=== PATIENT | female | born 1975 | race Caucasian/White ===

== ENCOUNTER 2021-03-15 15:47 | Outpatient (REF) | payer MEDICAID, SELFPAY ==
--- NOTE | ~2021-03-15 | MM_ITS ---
EXAMINATION: MM SCREENING DIGITAL BREAST TOMOSYNTHESIS, BILATERAL CLINICAL INFORMATION: Screening. Asymptomatic. The lifetime risk of breast cancer based on the Tyrer-Cuzick Model is 7%. COMPARISON: Mammography: 05/12/2018 (baseline). TECHNIQUE: Digital breast tomosynthesis is performed in both the craniocaudal and mediolateral oblique views along with computer-aided detection (CAD). Synthesized 2D images are generated from the tomosynthesis. FINDINGS: There are scattered areas of fibroglandular density (ACR BI-RADS breast composition Category b). There are no significant masses, abnormal calcifications, or other abnormalities. There is small intramammary node posterior outer left breast and a stable small circumscribed nodule mid 9:00 left breast similar to baseline exam. The axilla and skin contours are unremarkable. MM/MM tomosynthesis screening BI IMPRESSION: No mammographic evidence of malignancy. ASSESSMENT: BI-RADS 2: Benign RECOMMENDATION: Routine annual mammography screening. This patient's information was entered into a reminder system with a target due date for their next mammogram.
== END 2021-03-15 15:48 | disposition home or self-care (01) ==
LOC: HO.MAMMO 15:47
PROVIDERS: PCP Student in an Organized Health Care Education/Training Program; Visit Provider Student in an Organized Health Care Education/Training Program
DX: Z12.31 Encounter for screening mammogram for malignant neoplasm of breast (principal)
CPT/HCPCS: 77063; 77067

== ENCOUNTER 2021-05-12 15:12 | Outpatient (REF) | payer MEDICAID, SELFPAY ==
--- NOTE | ~2021-05-12 | XR_ITS ---
EXAMINATION: XR FOOT, RIGHT CLINICAL INFORMATION: Pain in right foot. COMPARISON: None TECHNIQUE: AP, lateral, and oblique views of the right foot. FINDINGS: There is minimal spurring on the plantar aspect of the calcaneus. The bones and soft tissues are otherwise normal. No fracture. Alignment is anatomic. Joint spaces are maintained. XR/XR foot RT min 3V IMPRESSION: Unremarkable examination.
== END 2021-05-12 15:13 | disposition home or self-care (01) ==
LOC: HO.XRAY 15:12
PROVIDERS: PCP Student in an Organized Health Care Education/Training Program; Visit Provider Student in an Organized Health Care Education/Training Program
DX: M79.671 Pain in right foot (principal)
CPT/HCPCS: 73630

== ENCOUNTER 2023-04-12 16:18 | Outpatient (REF) | payer MEDICAID, SELFPAY | END 2023-04-12 16:19 | disposition home or self-care (01) | LOC: HO.CHCLNP 16:18 | PROVIDERS: Visit Provider Internal Medicine | DX: R35.0 Frequency of micturition (principal); N30.01 Acute cystitis with hematuria | CPT/HCPCS: 87086; 87088; 87186 ==

== ENCOUNTER 2024-09-10 13:39 | Outpatient (REF) | payer MEDICAID, SELFPAY ==
--- OUTSIDE RECORDS SUMMARY | 2024-09-10 17:32 | XMS_ITS | Encounter Summary ---
Author Organization [employer] Address [address] [place] [address] Care Team Providers Care Problem Manager Name Role Phone Itzel Schmid MD Primary Care Provider [phone] Reason for Visit * Reason Onset Date Comments Med Refill 09/16/2023 Encounter Details Date Type Department Care Team ([facility] st Contact Info) Description 09/16/2023 Telephone [facility] MED & PEDS [address] [place] [address] Itzel Schmid MD [address] [place] [address] Med Refill Social History Tobacco Use Types Packs/Day Years Used Date Smoking Tobacco: Never Smokeless Tobacco: Never Alcohol Use Standard Drinks/Week Comments Never 0 (1 standard drink = 0.6 oz pur e alcohol) Depression Answer Date Recorded Patient Health Questionnaire-9 Score 0 06/19/2023 Patient Health Questionnaire-9 Score 0 06/19/2023 Last PHQ-9: Questionnaire Data Not on file 1 08/19/2022 Housing Stability Answer Date Recorded What is your housing situation today? I have maritza reilly 06/19/[address] you li ve. Do you have problems with any of the following? None of the above 06/19/2023 Food Insecurity Answer Date Recorded Within the past 12 months, y ou worried that your food would run out before you got money to buy more: Never True 06/19/2023 Within the past 12 months,th e food you bought just didn't last and you didn't have enough money to get more: Never True 03/2023 Transportation Answer Date Recorded In the past 12 months, has l ack of transportation kept you from medical appts, meetings, work or from getting things needed for daily living? No 06/19/2023 Utilities Answer Date Recorded In the past 12 months, has t he electric, gas, oil or water company threatened to shut off services in your home? No 06/19/2023 Depression Answer Date Recorded Patient Health Questionnaire-2 Score 0 06/19/2023 Comments Unknown Sex and Gender Information Value Date Recorded Sex Assigned at Female 06/11/2022 10:18 AM EDT Legal Sex Female 10:18 AM EDT Gender Identity Female 06/11/2022 10:18 AM EDT Sexual Orientation Straight 06/11/2022 10 :18 AM EDT documented as of this encounter Miscellaneous Notes * Telephone Encounter - Sarika Monet RN - 09/16/2023 4:43 PM EST Triage call Pt reports low back pain mainly right sided. Pt reports, I have been doing alot of cooking lately I may have twisted my back . Pt has had a hx of back pain and previously was prescribed cyclobenzaprine 10 mg which was effective for back spasms. Pt is requesting this medication be refilled but, the medication is not on chart/meds. Pt reports back pain is mainly right sided, radiates down right leg and is aching feeling which is sharp at times. Neg for numbness. Pt is able to go about normal activities and walking is not changed. Advised to come to [facility] 09/17 @ 320pm. Insurance is verified as active prior to booking. Protocol Used: Back Pain (Adult) Protocol-Based Disposition: See in Office or Video Visit within 3 Days Video visit not offered Positive Triage Questions: * Pain radiates into the thigh or further down the leg * Patient wants to be seen * All higher-acuity triage questions were negative Care Advice Discussed: * Reassurance and Education - Back Pain * Cold or Heat * Sleep * Activity * Pain Medicines * Pain Medicines - Extra Notes and Warnings * Reasons To Call Back - Fever occurs - Numbness or weakness occurs, or bowel/bladder problems - Pain begins to shoot into the leg - Pain persists over 2 weeks - Pain becomes worse - You become worse * Telephone Encounter - Antonio Oconnellnay Mcintoshrero - 09/16/2023 4:16 PM EST TC from pt requesting medication refill. Medications needing refill : Cyclobenzaprine 10 mg tablet To be sent to: [facility]/pharmacy #[id number] - [place] - [address] Medication Currently Inactive documented in this encounter Plan of Treatment Upcoming Encounters Date Type Department Care Team (Late st Contact Info) Description 09/18/2024 10:45 AM EST Office Visit [facility] MED & PEDS [address] [place] [address] Itzel Schmid MD [address] [place] [address] documented as of this encounter Visit Diagnoses Not on filedocumented in this encounter Additional Health Concerns Assessment Noted Time PHQ-9 Depression Total Score: 0 06/19/20 23 11:34 AM EST documented as of this encounter Care Teams Problem Manager Relationship Specialty Start Date End Date Itzel Schmid MD [address] [place] [address] PCP - General Family Medicine 05/12/14 documented as of this encounter
--- OUTSIDE RECORDS SUMMARY | 2024-09-10 17:32 | XMS_ITS | Encounter Summary ---
Author Organization [employer] Address [address] [facility] [address] [place] [address] Care Team Providers Care Application Support Manager Name Role Phone Itzel Schmid MD Primary Care Provider [phone] Reason for Visit * Reason Onset Date Comments Appointment Request 12/06/2022 Encounter Details Date Type Department Care Team (Late Contact Info) Description 12/06/2022 Telephone [facility] CH[facility] MED & PEDS [address] [place] [address] Itzel Schmid MD [address] [place] [address] Appointment Request Social History Tobacco Use Types Packs/Day Years Used Date Smoking Tobacco: Never Assessed Comments Unknown Sex and Gender Information Value Date Recorded Sex Assigned at Female 06/11/2022 10:18 AM EDT Legal Sex Female 10:18 AM EDT Gender Identity Female 06/11/2022 10:18 AM EDT Sexual Orientation Straight 06/11/2022 10 :18 AM EDT documented as of this encounter Miscellaneous Notes * Telephone Encounter - Antonio Ortiz - 12/06/2022 1:55 PM EDT Tc from pt requesting a Follow up appt with provider to discuss some concerns and issues pt is having. Please contact pt at [phone] documented in this encounter Plan of Treatment Upcoming Encounters Date Type Department Care Team (Late Contact Info) Description 09/18/2024 10:45 AM EST Office Visit [facility] MED & PEDS [address] [place] [address] Itzel Schmid MD [address] [place] [address] documented as of this encounter Visit Diagnoses Not on filedocumented in this encounter Care Teams Application Support Manager Relationship Specialty Start Date End Date Itzel Schmid MD [address] [place] [address] PCP - General Family Medicine 05/12/14 documented as of this encounter
--- OUTSIDE RECORDS SUMMARY | 2024-09-10 17:32 | XMS_ITS | Clinical Summary ---
Author Organization [employer] Address [address] [facility] [address] [place] [address] Care Team Providers Care Metallographic Technician Name Role Phone Itzel Schmid MD Primary Care Provider [phone] Allergies No known active allergies Medications albuterol (2.5 MG/3ML) 0.083% nebulizer solution inhale 3 milliliter by nebulization route every 4 - 6 hours 2 Active ibuprofen 800 MG tablet take 1 Tablet by Oral route 3 times every day as needed 90 tablet 3 3 Active albuterol (ProAir HFA) 108 (90 Base) MCG/ACT inhaler Inhale 2 puff using inhaler four times a day as needed 18 g 11 3 Active cetirizine (ZyrTEC) 10 MG tabletIndicatio ns:Allergy, sequela TAKE 1 TABLET BY MOUTH EVERY DAY IN THE MORNING 90 tablet 3 4 Active cholecalciferol (D3-1000) 25 MCG (1000 UT) tabletIndicatio ns:Vitamin D deficiency Take 1 tablet (25 mcg) by mouth in the morning. 90 tablet 2 4 Active naproxen (Naprosyn) 500 MG tablet TAKE 1 TABLET BY MOUTH TWICE A DAY 60 tablet 4 Active Diclofenac Sodium 1 % gel APPLY 2 GRAMS TO AFFECTED AREA TWICE A DAY 100 g 3 4 Active betamethasone valerate (Valisone) 0.1 % ointment Apply topically if needed in the morning and at bedtime (dryness). 45 g 2 4 Active Active Problems Problem Noted Date Diagnosed Date Paraspinal muscle spasm 09/17/2023 Assessment & Plan (09/17/2023 3:37 PM EST): Patient that presented visit with complaints of paraspinal muscle spasm will be prescribed medications to treat concern. Advised to notify office if medication doesn't improve symptoms. Recommended physical therapy: patient accepted. Therefore, patient will be provided with a referral to Physical Therapy. Will schedule appointment with PCP. Allergic rhinitis 08/15/2011 Asthma 08/15/2011 Vitamin D deficiency 07/18/2010 Encounters Date Type Department Care Team Description 07/27/2024 Telephone [facility] MED & PEDS [address] [place] [address] Itzel Schmid MD Lab Orders from Last 3 Months Social History Tobacco Use Types Packs/Day Years Used Date Smoking Tobacco: Never Smokeless Tobacco: Never Tobacco Cessation:Counseling Given: Not Answered Alcohol Use Standard Drinks/Week Comments Never 0 [...] Orientation Straight 06/11/2022 10 :18 AM EDT Last Filed Vital Signs Vital Sign Reading Time Taken Comments Blood Pressure 132/90 10/16/2023 11:04 AM EST Pulse 108 10/16/2023 11:04 AM EST Temperature 36.7 ??C (98 ??F) 10/16/2023 11:04 AM EST Respiratory Rate 20 10/16/2023 11:04 AM EST Oxygen Saturation 96% 10/16/2023 11:04 AM EST Inhaled Oxygen Concentration - - Weight 77.1 kg (170 lb) 10/16/2023 11:04 AM EST Height 160 cm (5' 3 ) 10/16/2023 11:04 AM EST Body Mass Index 30.11 10/16/2023 11:04 AM EST Plan of Treatment Upcoming Encounters Date Type Department Care Team (Late st Contact Info) Description 09/18/2024 10:45 AM EST Office Visit [facility] MED & PEDS [address] [place] [address] Itzel Schmid MD [address] [place] [address] Health Maintenance Due Date Last Done Comments CT Colonography 1976 Colonoscopy 1976 Colorectal Cancer Screening 1976 FIT DNA/Cologuard 1976 FIT 1976 FOBT 1976 HIV Screening 1976 Sigmoidoscopy 1976 Alcohol/Substance Use Screening 1988 Family Planning (PISQ) 1991 Hepatitis C Screening 1994 Hepatitis B Vaccines (1 of 3 - 19+ 3-dose series) 1995 Pneumococcal Vaccine: Pediatrics (0 to 5 Years) and At-Risk Patients (6 to 49) Years) (1 of 2 - PCV) 1995 IPV Vaccines (2 of 3 - Adult catch-up series) 03/10/2019 02/10/2019 Mammogram 03/15/2023 03/15/2021, 05/14/2018 COVID-19 Vaccine ( season) 2024 02/23/2021, 02/02/2021 Influenza Vaccine (#1) 2024 3, 06/30/2022, 07/21/2021, Additional history exists Depression Screening 06/19/2024 06/19/2023, 06/19/20 23 SDOH Screening 06/19/2024 06/19/2023 Tobacco Screening 10/15/2024 10/16/2023 Cervical Cancer Screening 09/27/2025 HPV/Cotest 09/27/2025 09/27/2020 Pap Smear 09/27/2025 09/27/2020 Zoster Vaccines (1 of 2) 2026 DTaP/Tdap/Td Vaccines (2 - Td or Tdap) 03/26/2028 03/26/2018 RSV Patients and Patients Aged 60 years or older (1 - 1-dose 75+ series) 2051 Hepatitis A Vaccines Aged Out 08/26/2020, 02/05/20 19 No longer eligible based on patient's age to complete this topic HIB Vaccines Aged Out No longer eligi ble based on patient's age to complete this topic HPV Vaccines Aged Out No longer eligi ble based on patient's age to complete this topic Meningococcal Vaccine Aged Out No zachary eduardo eligible based on patient's age to complete this topic RSV under 20 months Aged Out No longe r eligible based on patient's age to complete this topic Rotavirus Vaccines Aged Out No longer eligible based on patient's age to complete this topic Procedures Procedure Name Priority Date/Time Associated Diagnosis Comments MAMMOGRAM GENERIC Routine 03/15/2021 3:4 5 PM EDT HPV MRNA E6/E7 Routine 09/27/2020 2:14 PM EST THINPREP PAP Routine 09/27/2020 2:14 PM EST from Last 3 Months or Most Recently Relevant to Health Maintenance Results * Mammography Report 1 (03/15/2021 3:45 PM EDT) Anatomical Region Laterality Modality Breast Bilateral Mammography 03/15/2021 3:45 PM EDT Narrative 03/17/2021 8:02 AM EDT Refer to the Notes tab for result details [facility] Procedure: Mammography Report 1 Procedure Note Provider, Tori, - 11/04/2022 Refer to the Notes tab for result details [facility] Procedure: Mammography Report 1 Itzel Schmid MD IMG BI PROCEDURES Final Result * THINPREP PAP (09/27/2020 2:14 PM EST) Clinical Information: None given [facility] COMMENT SEE COMMENT [facility] Comment: EXPLANATORY NOTE: ? The Pap is a screening test for cervical cancer. It is ?? not a diagnostic test and is subject to false negative ?? and false positive results. It is most reliable when a ?? satisfactory sample, regularly obtained, is submitted ?? with relevant clinical findings and history, and when ?? the Pap result is evaluated along with historic and ?? current clinical information. ?? Animal Husbandry Worker : SEE COMMENT [facility] Comment: CXP, CT(ASCP) CT screening location: [address] ??[address] Interpretation/R esult: Negative for intraepithelial lesion or malignancy. [facility] LMP: NONE [facility]IV[facility] Prev. BX: NONE [facility]IV[facility] Prev. PAP: NONE [facility]IVEN [facility] SOURCE: None given [facility] Statement Of Adequacy: SEE COMMENT [facility] Comment: Satisfactory for evaluation. Endocervical/transformation zone component present. Age and/or menstrual status not provided 09/27/2020 2:14 PM EST us Tonya RUGGI[facility] LAB PATHOLOGY ORDERABLES Final Result [facility] [address] * HPV mRNA E6/E7 (09/27/2020 2:14 PM EST) HPV nRNA E6/E7 Not Detected Not Detected [facility] Comment: Methodology: Pile Fabric Knitter-Mediated Amplification This assay detects E6/E7 viral messenger RNA (mRNA) from 14 high-risk HPV types (16,18,31,33,35,39,45,51,52,56,58,59,66,68). ? The analytical performance characteristics of this assay have been determined by [employer]. The modifications have not been cleared or approved by the FDA. This assay has been validated pursuant to the CLIA regulations and is used for clinical purposes. ?? For additional information, please refer to http://education.britebill/MPG016b3 (This link if provided for information/ educational purposes only.) 09/27/2020 2:14 PM EST Tonya RUGGI[facility] LAB BLOOD ORDERABLES Melissa brock Result Performing Organization Address City/State/[facility] Co de Phone Number [facility] [address] from Last 3 Months or Most Recently Relevant to Health Maintenance Insurance [employer] Care Teams Metallographic Technician Relationship Specialty Start Date End Date Itzel Schmid MD [address] [place] [address] PCP - General Family Medicine 05/12/14
--- OUTSIDE RECORDS SUMMARY | 2024-09-10 17:32 | XMS_ITS | Encounter Summary ---
Author Organization [employer] Address [address] [place] [id number] Care Team Providers Care Cut Lace Machine Operator Name Role Phone Itzel Schmid MD Primary Care Provider [phone] Encounter Details Date Type Department Care Team ([facility] Contact Info) Description 04/16/2023 Orders Only [facility] MED & PEDS [address] [place] [address] Sally Singh MD [address] [place] [address] Social History Tobacco Use Types Packs/Day Years Used Date Smoking Tobacco: Never Smokeless Tobacco: Never Comments Unknown Sex and Gender Information Value Date Recorded Sex Assigned at Female 06/11/2022 10:18 AM EDT Legal Sex Female 10:18 AM EDT Gender Identity Female 06/11/2022 10:18 AM EDT Sexual Orientation Straight 06/11/2022 10 :18 AM EDT documented as of this encounter Plan of Treatment Upcoming Encounters Date Type Department Care Team ([facility] Contact Info) Description 09/18/2024 10:45 AM EST Office Visit [facility] MED & PEDS [address] [place], [place] [phone] Itzel Schmid MD [address] [place], [place] [phone] documented as of this encounter Visit Diagnoses Not on filedocumented in this encounter Care Teams Cut Lace Machine Operator Relationship Specialty Start Date End Date tIzel Schmid MD [address] [place] [address] PCP - General Family Medicine 05/12/14 documented as of this encounter
[2024-09-10 18:46] LABS: Alanine Aminotransferase 12 U/L (0-31); Albumin Level 3.7 g/dL (3.5-5.0); Anion Gap 11 (12-20); Aspartate Amino Transferase 24 U/L (5-31); Bilirubin Direct 0.2 mg/dL (0.0-0.5); Bilirubin Total 0.4 mg/dL (0.0-1.0); Blood Urea Nitrogen 15 mg/dL (9-16); Calcium 8.8 mg/dL (8.4-10.2); Carbon Dioxide 26 mmol/L (22-29); Chloride 105 mmol/L (96-108); Cholesterol 183 mg/dL (<200); Estimated Glomerular Filt Rate > 60; Glucose Random 95 mg/dL (60-115); HDL Cholesterol 49 mg/dL (>40); LDL Cholesterol Calculated 100 mg/dL (<100); Potassium 3.8 mmol/L (3.3-5.1); Sodium 138 mmol/L (135-145); Total Protein 7.5 g/dL (6.5-8.0); Triglycerides 170 mg/dL (<150)
[2024-09-10 18:54] LABS: Alkaline Phosphatase 67 U/L (39-117); Vitamin D 25-OH Total 50.4 ng/mL (>30)
== END 2024-09-10 13:40 | disposition home or self-care (01) ==
LOC: HO.CHCLDS 13:39
PROVIDERS: Visit Provider Student in an Organized Health Care Education/Training Program
DX: J45.40 Moderate persistent asthma, uncomplicated (principal); E55.9 Vitamin D deficiency, unspecified
CPT/HCPCS: 36415; 80048; 80061; 80076; 82306

== ENCOUNTER 2025-07-06 10:42 | Outpatient (REF) | payer MEDICAID, SELFPAY ==
--- OUTSIDE RECORDS SUMMARY | 2025-07-06 10:00 | XMS_ITS | Encounter Summary ---
Author Organization [employer] Address [address] [place] [address] 7 [place] [address] Care Team Providers Care Retail Salesworker Name Role Phone Gloria Osman CNP Primary Care Provider [phone] Reason for Referral * Imaging (Routine) - Closed Specialty Diagnoses / Procedures Referred By Michael corcoran Referred To Contact Radiology Diagnoses Encounter for screening mammogram for breast cancer Procedures BI Mammogram Screening Tomosynthesis Bilateral Gloria Osman CNP [address] [place] [address] Phone: tel: fax: [address] [address] Phone: tel: fax: Referral ID Status Reason Start Date Expiration Date Visits Re quested Visits Authorized [id number] Closed 07/06/2025 07/06/2026 1 1 Encounter Details Date Type Department Care Team (Late st Contact Info) Description 07/06/2025 10:00 AM EST Office Visit [facility] [address] [place] [address] Gloria Osman CNP [address] [place], [place] [id number] Encounter to establish care with new provider (Primary Dx); Colon cancer screening; Encounter for screening mammogram for breast cancer; Allergy, sequela; Chronic left-sided low back pain without sciatica; Screening for colon cancer; Encounter for immunization; Hyperglycemia Social History Tobacco Use Types Packs/Day Years Used Date Smoking Tobacco: Never Smokeless Tobacco: Never Alcohol Use Standard Drinks/Week Comments Never 0 (1 standard drink = 0.6 oz pur e alcohol) Depression Answer Date Recorded Patient Health Questionnaire-9 Score 0 07/06/2025 Patient Health Questionnaire-9 Score 0 07/06/2025 Last PHQ-9: Questionnaire Data Not on file 1 09/05/2024 Housing Stability Answer Date Recorded What is your housing situation today? I have maritza reilly 09/18/[address] you li ve. Do you have problems with any of the following? None of the above 09/18/2024 Food Insecurity Answer Date Recorded Within the past 12 months, y ou worried that your food would run out before you got money to buy more: Never True 09/18/2024 Within the past 12 months,th e food you bought just didn't last and you didn't have enough money to get more: Never True 02/2025 Transportation Answer Date Recorded In the past 12 months, has l ack of transportation kept you from medical appts, meetings, work or from getting things needed for daily living? No 09/18/2024 Utilities Answer Date Recorded In the past 12 months, has t he electric, gas, oil or water company threatened to shut off services in your home? No 09/18/2024 Depression Answer Date Recorded Patient Health Questionnaire-2 Score 0 07/06/2025 Internet Access Answer Date Recorded Internet Access Q1 Yes 06/29/2025 Internet Access Q2 Not on file 06/29/2025 Comments No Sex and Gender Information Value Date Recorded Sex Assigned at Female 06/11/2022 10:18 AM EDT Legal Sex Female 10:18 AM EDT Gender Identity Female 06/11/2022 10:18 AM EDT Sexual Orientation Straight 06/11/2022 10 :18 AM EDT documented as of this encounter Last Filed Vital Signs Vital Sign Reading Time Taken Comments Blood Pressure 132/84 07/06/2025 10:45 AM EST Pulse 100 07/06/2025 10:15 AM EST Temperature 36.3 C (97.4 F) 07/06/2025 10:15 AM EST Respiratory Rate 14 07/06/2025 10:15 AM EST Oxygen Saturation 98% 07/06/2025 10:15 AM EST Inhaled Oxygen Concentration - - Weight 76.2 kg (168 lb) 07/06/2025 10:15 AM EST Height 160 cm (5' 3 ) 07/06/2025 10:15 AM EST Body Mass Index 29.76 07/06/2025 10:15 AM EST documented in this encounter Functional Status * Over the past 2 weeks, how often have you been bothered by any of the following problems? Question Answer Date of Assessment Author Patient Health Questionnaire -2 Score 0 07/06/2025 11:09 AM Sa lexi Stein MA * Little interest or pleasure in doing things Answer Date of Assessment Author Not at all 07/06/2025 11:09 AM Alanna Daniel MA * Feeling down, depressed, or hopeless Answer Date of Assessment Author Not at all 07/06/2025 11:09 AM Alanna Daniel MA * Trouble falling or staying asleep, or sleeping too much Answer Date of Assessment Author Not at all 07/06/2025 11:09 AM Alanna Daniel MA * Feeling tired or having little energy Answer Date of Assessment Author Not at all 07/06/2025 11:09 AM Alanna Daniel MA * Poor appetite or overeating Answer Date of Assessment Author Not at all 07/06/2025 11:09 AM Alanna Daniel MA * Feeling bad about yourself - or that you are a failure or have let yourself or your family down Answer Date of Assessment Author Not at all 07/06/2025 11:09 AM Alanna Daniel MA * Trouble concentrating on things, such as reading the newspaper or watching television Answer Date of Assessment Author Not at all 07/06/2025 11:09 AM Alanna Daniel MA * Moving or speaking so slowly that other people could have noticed? Or the opposite - being so fidgety or restless that you have been moving around a lot more than usual. Answer Date of Assessment Author Not at all 07/06/2025 11:09 AM Alanna Daniel MA * Thoughts that you would be better off or hurting yourself in some way Answer Date of Assessment Author Not at all 07/06/2025 11:09 AM Alanna Daniel MA * Patient Health Questionnaire-9 Score Answer Date of Assessment Author 0 07/06/2025 11:09 AM Alanna Daniel MA * Over the last 2 weeks, how often have you been bothered by any of the following problems? Question Answer Date of Assessment Author Feeling nervous, anxious, or on edge 0 07/06/2025 11:08 AM Sa lexi Stein MA Not being able to stop or control worrying 0 07/06/2025 11:08 AM Sa lexi Stein MA Worrying too much about different things 0 07/06/2025 11:08 AM Sa lexi Stein MA Trouble relaxing 0 07/06/2025 11:08 AM Alanna Stein MA Being so restless that it is hard to sit still 0 07/06/2025 11:08 AM Sa lexi Stein MA Becoming easily annoyed or irritable 0 07/06/2025 11:08 AM Sa lexi Stein MA Feeling afraid as if somethi ng awful might happen 0 07/06/2025 11:08 AM Sa lexi Stein MA DEANNA-7 Total Score 0 07/06/2025 11:08 AM Alanna Stein MA documented as of this encounter Progress Notes * Gloria Osman CNP - 07/06/2025 10:00 AM EST Subjective: Hyacinth Zepeda is a 50 y.o. 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 Previous PCP Itzel Schmid MD. Interim history: Recent labs completed 08/2024- stable, besides mildly elevated cholesterol. RADHA with prior PCP was 09/2024 for PE which was normal Current concerns: In the morning reporting normal blood glucose in 60s-70s and then reports episode of hyperglycemia shooting to 130s-140s around 10am each day despite still fasting. Reports last meal usually before 8PM nightly. No history of DM. Chronic low back pain with radiation to LLE and some numbness of LLE. Denies new onset urinary or bowel incontinence. She does do daily exercises and stretching. Denies lower extremity weakness. Problem List[1] Surgical History[2] Family History[3] Mental health: Patient Health Questionnaire-9 Score: 0 (07/06/2025 11:09 AM) Patient Health Questionnaire-2 Score: 0 (07/06/2025 11:09 AM) Thoughts that you would be better off or hurting yourself in some way: Not at all (07/06/2025 11:09 AM) DEANNA-7 Total Score: 0 (07/06/2025 11:08 AM) Patient's last menstrual period was 06/08/2025. Allergies[4] Review of Systems Vitals: 07/06/25 1015 07/06/25 1045 BP: (!) 142/84 132/84 BP Location: Left arm Patient Position: Sitting BP Cuff Size: Large adult Pulse: 100 Resp: 14 Temp: 97.4 ??F (36.3 ??C) TempSrc: Oral SpO2: 98% Weight: 168 lb (76.2 kg) Height: 5' 3 (1.6 m) Physical Exam Constitutional: Appearance: Normal appearance. She is normal weight. Cardiovascular: Rate and Rhythm: Normal rate and regular rhythm. Pulses: Normal pulses. Heart sounds: Normal heart sounds. No murmur heard. No friction rub. No gallop. Pulmonary: Effort: Pulmonary effort is normal. No respiratory distress. Breath sounds: Normal breath sounds. No wheezing or rales. Neurological: General: No focal deficit present. Mental Status: She is alert and oriented to person, place, and time. Psychiatric: Mood and Affect: Mood normal. Behavior: Behavior normal. Thought Content: Thought content normal. Judgment: Judgment normal. Assessment & Plan Encounter to establish care with new provider Pt due for updated labs, ordered today Pt referred for breat and colon cancer screening, pap is up to date, not due until 09/2025 Discussed active meds and needs for refills as appropriate. Orders: Lipid Panel, Standard; Future Comprehensive Metabolic Panel; Future CBC auto differential; Future Hemoglobin A1c; Future Colon cancer screening Orders: Cologuard?? colon cancer screening Encounter for screening mammogram for breast cancer Orders: BI Mammogram Screening Tomosynthesis Bilateral; Future Allergy, sequela Refilled per pt request Orders: cetirizine (ZyrTEC) 10 MG tablet; Take 1 tablet (10 mg) by mouth in the morning. 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 Neg SLR bilaterally. Refilled diclofenac and prescribed flexeril to be taken prn for muscle spasms. Encouraged ongoing stretching and exercise Advised PT, declines as pt doing home stretches Orders: Diclofenac Sodium 1 % gel; APPLY 2 GRAMS TO AFFECTED AREA TWICE A DAY cyclobenzaprine (Flexeril) 10 MG tablet; Take 1 tablet (10 mg) by mouth 3 times daily. Screening for colon cancer Orders: Cologuard?? colon cancer screening Encounter for immunization Orders: FLU VACCINE TRIVALENT [id number] (Fluarix) 19 yrs + PCV-20 VACCINE 6 wks + Hyperglycemia Will obtain A1c to further evaluate hyperglycemia. In meantime, advised ongoing diet and exercise. Try to avoid meals high in carbohydrates 2 hours before bedtime. Current Medications[5] Immunization History Administered Date(s) Administered Hep A, Adult 02/04/2019, 08/26/2020 IPV 02/10/2019 Influenza Injectable Quadrivalant Preservative Free IIV4 MDCK 07/21/2021, 04/13/2023 Influenza injectable quadrivalent IIV4 with preservative 05/06/2015 Influenza injectable quadrivalent preservative free 08/26/2020, 06/30/2022 Influenza, IIV3, injectable 04/29/2014 Influenza, seasonal, injectable, preservative free 07/06/2025 XYZE Covid-19 Vaccine 12+ 02/02/2021, 02/23/2021 Pneumococcal Conjugate PCV 20 07/06/2025 Tdap 03/26/2018 Follow up in about 3 months (around 10/06/2025) for pap smear . [1] Patient Active Problem List Diagnosis Vitamin D deficiency Allergic rhinitis Asthma Paraspinal muscle spasm Acute sinusitis Backache Pneumonia due to organism Tietze's disease [2] No past surgical history on file. [3] No family history on file. [4] No Known Allergies [5] Current Outpatient Medications Medication Sig Dispense Refill albuterol (2.5 MG/3ML) 0.083% nebulizer solution inhale 3 milliliter by nebulization route every 4 - 6 hours albuterol (Ventolin HFA) 108 (90 Base) MCG/ACT inhaler INHALE 2 PUFFS BY MOUTH 4 TIMES A DAY NEEDED 18 g 5 betamethasone valerate (Valisone) 0.1 % ointment APPLY TOPICALLY IF NEEDED IN THE MORNING AND AT BEDTIME (DRYNESS). 45 g 2 cetirizine (ZyrTEC) 10 MG tablet Take 1 tablet (10 mg) by mouth in the morning. 90 tablet 3 cyclobenzaprine (Flexeril) 10 MG tablet Take 1 tablet (10 mg) by mouth 3 times daily. 30 tablet 0 D3-1000 25 MCG (1000 UT) tablet TAKE 1 TABLET BY MOUTH IN THE MORNING 90 tablet 2 Diclofenac Sodium 1 % gel APPLY 2 GRAMS TO AFFECTED AREA TWICE A DAY 100 g 3 fish oil (Hutchinson-3) 500 MG capsule Take 1 capsule (500 mg) by mouth Once per day. 60 capsule 11 ibuprofen 800 MG tablet take 1 Tablet by Oral route 3 times every day as needed 90 tablet 3 naproxen (Naprosyn) 500 MG tablet TAKE 1 TABLET BY MOUTH TWICE A DAY 60 tablet 0 norgestimate-ethinyl estradiol (Ortho-Cyclen) 0.25-35 MG-MCG tablet Take 1 tablet by mouth Once perday. No current facility-administered medications for this visit. 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 Neg SLR bilaterally. Refilled diclofenac and prescribed flexeril to be taken prn for muscle spasms. Encouraged ongoing stretching and exercise Advised PT, declines as pt doing home stretches Orders: Diclofenac Sodium 1 % gel; APPLY 2 GRAMS TO AFFECTED AREA TWICE A DAY cyclobenzaprine (Flexeril) 10 MG tablet; Take 1 tablet (10 mg) by mouth 3 times daily. documented in this encounter Plan of Treatment Scheduled Orders Name Type Priority Associated Diagnoses Orde r Schedule Lipid Panel, Standard Lab Routine Encounter to establish care with new provider Expected: 07/06/2025 (Approximate), Expires: 07/06/2026 Comprehensive Metabolic Panel Lab Routine Encounter to establish care with new provider Expected: 07/06/2025 (Approximate), Expires: 07/06/2026 CBC auto differential Lab Routine Encounter to establish care with new provider Expected: 07/06/2025 (Approximate), Expires: 07/06/2026 BI Mammogram Screening Tomosynthesis Bilateral Imaging Routine Encounter for screening mammogram for breast cancer Expected: 07/06/2025, Expires: 09/05/2026 Hemoglobin A1c Lab Routine Encounter to establish care with new provider Expected: 07/06/2025 (Approximate), Expires: 07/06/2026 Cologuard colon cancer screening Lab Routine Colon cancer screening Screening for colon cancer Ordered: 07/06/2025 documented as of this encounter Visit Diagnoses Diagnosis Encounter to establish care with new provider- Primary Colon cancer screening Special screening for malignant neoplasms, colon Encounter for screening mammogram for breast cancer Allergy, sequela Chronic left-sided low back pain without sciatica Screening for colon cancer Special screening for malignant neoplasms, colon Encounter for immunization Hyperglycemia Other abnormal glucose documented in this encounter Additional Health Concerns Assessment Noted Time PHQ-9 Depression Total Score: 0 07/06/20 11:09 AM EST documented as of this encounter Care Teams Retail Salesworker Relationship Specialty Start Date End Date Gloria Osman CNP [address] [place] [address] PCP - General Family Medicine 06/08/25 documented as of this encounter
--- OUTSIDE RECORDS SUMMARY | 2025-07-06 13:45 | XMS_ITS | Encounter Summary ---
Author Organization [employer] Address [address] [place] [address] [place] [address] Care Team Providers Care Parking Lot Laborer Name Role Phone Itzel Schmid MD Primary Care Provider [phone] Gloria Osman CNP Primary Care Provider [phone] Encounter Details Date Type Department Care Team (Late st Contact Info) Description 04/16/2023 Orders Only [facility] MED [facility] P[facility]S [address] [place], [place] [phone] Sally Singh MD [address] [place], [place] [id number] Social History Tobacco Use Types Packs/Day Years Used Date Smoking Tobacco: Never Smokeless Tobacco: Never Comments Unknown Sex and Gender Information Value Date Recorded Sex Assigned at Female 06/11/2022 10:18 AM EDT Legal Sex Female 10:18 AM EDT Gender Identity Female 06/11/2022 10:18 AM EDT Sexual Orientation Straight 06/11/2022 10 :18 AM EDT documented as of this encounter Plan of Treatment Not on file documented as of this encounter Visit Diagnoses Not on filedocumented in this encounter Care Teams Parking Lot Laborer Relationship Specialty Start Date End Date Itzel Schmid MD [address] [place] [address] PCP - General Family Medicine 05/12/14 06/07/25 Gloria Osman CNP [address] [place], [place] [phone] PCP - General Family Medicine 06/08/25 documented as of this encounter
--- OUTSIDE RECORDS SUMMARY | 2025-07-06 13:45 | XMS_ITS | Encounter Summary ---
Author Organization [employer] Address [address] [place] [address] [address] [place] [address] Care Team Providers Care Steel Plate Printer Name Role Phone Itzel Schmid MD Primary Care Provider [phone] Gloria Osman CNP Primary Care Provider [phone] Reason for Visit * Reason Onset Date Comments Appointment Request 12/06/2022 Encounter Details Date Type Department Care Team ([facility] st Contact Info) Description 12/06/2022 Telephone [facility] PEDS [address] [place] [address] Itzel Schmid MD [address] [place] [address] Appointment Request Social History Tobacco Use Types [...] pt is having. Please contact pt at [phone] documented in this encounter Plan of Treatment Not on file documented as of this encounter Visit Diagnoses Not on filedocumented in this encounter Care Teams Steel Plate Printer Relationship Specialty Start Date End Date Itzel Schmid MD [address] [place] [id number] PCP - General Family Medicine 05/12/14 06/07/25 Gloria Osman CNP [address] [place] [id number] PCP - General Family Medicine 06/08/25 documented as of this encounter
--- OUTSIDE RECORDS SUMMARY | 2025-07-06 13:45 | XMS_ITS | Encounter Summary ---
Author Organization [employer] Address [address] [place] [address] Care Team Providers Care Maintenance Equipment Operator Name Role Phone Gloria Osman CHRISTELLE Primary Care Provider [phone] Encounter Details Date Type Department Care Team (Latest Contact Info) Description 07/06/2025 Travel Social History Tobacco Use Types Packs/Day Years [...] AM EDT documented as of this encounter Functional Status * Over the [...] Not at all 07/06/2025 11:09 AM Alanna Dnaiel MA * Feeling tired or having little [...] MA Trouble relaxing 0 07/06/2025 11:08 AM Aalnna Stein MA Being so restless that it [...] Stein MA documented as of this encounter Plan of Treatment Not on file documented as of this encounter Visit Diagnoses Not on filedocumented in this encounter Additional Health Concerns Assessment Noted Time PHQ-9 Depression Total Score: 0 07/06/20 11:09 AM EST documented as of this encounter Care Teams Maintenance Equipment Operator Relationship Specialty Start Date End Date Gloria Osman CNP [address] [place] [address] PCP - General Family Medicine 06/08/25 documented as of this encounter
--- OUTSIDE RECORDS SUMMARY | 2025-07-06 13:45 | XMS_ITS | Encounter Summary ---
Author Organization [employer] Address [address] [place] [address] 7 [place] [address] Care Team Providers Care Fish Flipper Name Role Phone Gloria Osman CNP Primary Care Provider [phone] Reason for Visit * Reason Onset Date Comments chart prep 07/05/2025 Encounter Details Date Type Department Care Team ([facility] Contact Info) Description 07/05/2025 Telephone [facility] MED & PEDS [address] [place] [address] Gloria Osman CNP [address] [place] [address] chart prep Social History Tobacco Use Types Packs/Day Years [...] Access Q2 Not on file 06/29/2025 Comments Unknown Sex and Gender Information Value Date Recorded Sex Assigned at Female 06/11/2022 10:18 AM EDT Legal Sex Female 10:18 AM EDT Gender Identity Female 06/11/2022 10:18 AM EDT Sexual Orientation Straight 06/11/2022 10 :18 AM EDT documented as of this encounter Miscellaneous Notes * Telephone Encounter - Alanna Irving MA - 07/05/2025 1:15 PM EST Chart Prep Labs: not applicable Images: not applicable Referrals: not applicable Vaccines due: Covid, Flu, PCV20, and Hep B, IPV Screenings: colonoscopy, mammogram, STI screening, and LMP Overdue care gaps: SBIRT, PHQ-9, DEANNA-7, and Disability screen documented in this encounter Plan of Treatment Not on file documented as of this encounter Visit Diagnoses Not on filedocumented in this encounter Additional Health Concerns Assessment Noted Time PHQ-9 Depression Total Score: 0 06/19/20 23 11:34 AM EST documented as of this encounter Care Teams Fish Flipper Relationship Specialty Start Date End Date Gloria Osman CNP [address] [facility] [place] [address] PCP - General Family Medicine 06/08/25 documented as of this encounter
--- OUTSIDE RECORDS SUMMARY | 2025-07-06 13:45 | XMS_ITS | Clinical Summary ---
Author Organization [employer] Address [address] [place] [address] [address] [place] [address] Care Team Providers Care Crushed Stone Grader Name Role Phone Brian Osmanarmanievangelina CHRISTELLE Primary Care Provider [phone] Allergies No known active allergies Medications albuterol (2.5 MG/3ML) 0.083% nebulizer solution inhale 3 milliliter by nebulization route every 4 - 6 hours 10/20/19 22 Active naproxen (Naprosyn) 500 MG tablet TAKE 1 TABLET BY MOUTH TWICE A DAY 60 tablet 10/17/19 24 Active ibuprofen 800 MG tablet take 1 Tablet by Oral route 3 times every day as needed 90 tablet 3 09/18/19 25 Active fish oil ([place]-3) 500 MG capsule Take 1 capsule (500 mg) by mouth Once per day. 60 capsule 11 09/18/19 25 Active D3-1000 25 MCG (1000 UT) tabletIndicat ions:Vitamin D deficiency TAKE 1 TABLET BY MOUTH IN THE MORNING 90 tablet 2 11/03/19 25 Active betamethasone valerate (Valisone) 0.1 % ointment APPLY TOPICALLY IF NEEDED IN THE MORNING AND AT BEDTIME (DRYNESS). 45 g 2 12/10/19 25 Active albuterol (Ventolin HFA) 108 (90 Base) MCG/ACT inhaler INHALE 2 PUFFS BY MOUTH 4 TIMES A DAY NEEDED 18 g 5 04/08/20 25 Active norgestimate- ethinyl estradiol (Ortho-Cyclen ) 0.25-35 MG-MCG tablet Take 1 tablet by mouth Once per day. 03/22/20 25 Active cetirizine (ZyrTEC) 10 MG tabletIndicat ions:Allergy, sequela Take 1 tablet (10 mg) by mouth in the morning. 90 tablet 3 07/06/20 Active Diclofenac Sodium 1 % gelIndication s:Chronic left-sided low back pain without sciatica APPLY 2 GRAMS TO AFFECTED AREA TWICE A DAY 100 g 3 07/06/20 Active cyclobenzapri ne (Flexeril) 10 MG tabletIndicat ions:Chronic left-sided low back pain without sciatica Take 1 tablet (10 mg) by mouth 3 times daily. 30 tablet 07/06/20 25 Active cholecalcifer ol (Vitamin D-3) 25 MCG (1000 UT) capsule Take 1 capsule (25 mcg) by mouth Once per day. 30 capsule 11 09/18/19 Discontinued(D uplicate order (will not trigger notification to Pharmacy)) cetirizine (ZyrTEC) 10 MG tabletIndicat ions:Allergy, sequela TAKE 1 TABLET BY MOUTH EVERY DAY IN THE MORNING 90 tablet 3 10/07/19 Discontinued(R eorder (will not trigger notification to Pharmacy)) Diclofenac Sodium 1 % gel APPLY 2 GRAMS TO AFFECTED AREA TWICE A DAY 100 g 3 10/14/19 025 Discontinued(R eorder (will not trigger notification to Pharmacy)) Active Problems Problem Noted Date Diagnosed Date Paraspinal muscle spasm 09/17/2023 Assessment & Plan (07/06/2025 12:04 PM EST): Advised XR for further evaluation, based on [...] (10 mg) by mouth 3 times daily. Assessment & Plan (09/17/2023 3:37 PM EST): Patient that presented visit with complaints of paraspinal muscle spasm will be prescribed medications to treat concern. Advised to notify office if medication doesn't improve symptoms. Recommended physical therapy: patient accepted. Therefore, patient will be provided with a referral to Physical Therapy. Will schedule appointment with PCP. 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 Encounters Date Type Department Care Team Description 07/06/2025 10:00 AM EST Office Visit [facility] [address] [place] [address] Gloria Osman CNP Encounter to establish care with new provider (Primary Dx); Colon cancer screening; Encounter for screening mammogram for breast cancer; Allergy, sequela; Chronic left-sided low back pain without sciatica; Screening for colon cancer; Encounter for immunization; Hyperglycemia 07/06/2025 Travel 07/05/2025 Telephone [facility] [address] [place] [address] Gloria Osman CNP chart prep 06/29/2025 Patient Outreach [facility] [address] [place] [id number] Gloria Osman CNP Pre-visit Planning (SDOH screening negative and Tobacco screening negative) 05/11/2025 Telephone [facility] [address] [place] [id number] Itzel Schmid MD No Show 05/10/2025 Telephone [facility] [address] [place] [address] Itzel Schmid MD chart prep 05/04/2025 Patient Outreach [facility] [address] [place] [id number] Itzel Schmid MD Transition Of Care (Tcm) (Pre visit planning LVM ) 04/07/2025 Refill [facility] [address] [place] [address] Itzel Schmid MD from Last 3 Months Immunizations Immunization Administration Dates Next Due Hep A, Adult 08/26/2020,02/04/2019 IPV 02/10/2019 Influenza Injectable Quadriv alant Preservative Free IIV4 MDCK 04/13/2023,07/21/2021 Influenza injectable quadriv alent IIV4 with preservative 05/06/2015 Influenza injectable quadrivalent preservative f ree 06/30/2022,08/26/2020 Influenza, IIV3, injectable 04/29/2014 Influenza, seasonal, injectable, preservative fr ee 07/06/2025 Pneumococcal Conjugate PCV 20 07/06/2025 Tdap 03/26/2018 Social History Tobacco Use Types Packs/Day Years [...] Mass Index 29.76 07/06/2025 10:15 AM EST Plan of Treatment Health Maintenance Due Date Last Done Comments CT Colonography 1976 Colonoscopy 1976 Colorectal Cancer Screening 1976 FIT DNA/Cologuard 1976 FIT 1976 FOBT 1976 HIV Screening 1976 Sigmoidoscopy 1976 Family Planning (PISQ) 1991 Hepatitis C Screening 1994 Hepatitis B Vaccines (1 of 3 - 19+ 3-dose series) 1995 IPV Vaccines (2 of 3 - Adult catch-up series) 03/10/2019 02/10/2019 Mammogram 03/15/2023 03/15/2021, 05/14/2018 Cervical Cancer Screening 09/27/2025 HPV/Cotest 09/27/2025 09/27/2020 Pap Smear 09/27/2025 09/27/2020 Zoster Vaccines (1 of 2) 2026 Alcohol/Substance Use Screening 07/06/2026 07/06/2025 COVID-19 Vaccine (3 - 2024- season) 2026 02/23/2021, 02/02/2021 Postponed from 04/12/2025 (Patient Refused) Depression Screening 07/06/2026 07/06/2025, 07/06/20 Disability Screening 07/06/2026 07/06/2025 SDOH Screening 07/06/2026 07/06/2025 Tobacco Screening 07/06/2026 07/06/2025 DTaP/Tdap/Td Vaccines (2 - Td or Tdap) 03/26/2028 03/26/2018 RSV Patients and Patients Aged 60 years or older (1 - 1-dose 75+ series) 2051 Hepatitis A Vaccines Aged Out 08/26/2020, 02/05/20 19 No longer eligible based on patient's age to complete this topic Influenza Vaccine Completed 07/06/2025, , 06/30/2022, Additional history exists Pneumococcal Vaccine: Pediatrics (0 to 5 Years) and At-Risk Patients (6 to 49) Years Completed 07/06/2025 HIB Vaccines Aged Out No longer eligi ble based on patient's age to complete this topic HPV Vaccines Aged Out No longer eligi ble based on patient's age to complete this topic Meningococcal B Vaccine Aged Out No l onger eligible based on patient's age to complete [...] Procedure: Mammography Report 1 Procedure Note Provider, MD Tori - 11/04/2022 Refer to the Notes tab for result details Legacy Procedure: Mammography Report 1 Itzel Schmid MD IMG BI PROCEDURES Final Result * THINPREP PAP (09/27/2020 2:14 PM EST) Clinical Information: None given [facility] COMMENT SEE COMMENT [facility] Comment: EXPLANATORY NOTE: The Pap is a screening test for cervical cancer. It is not a diagnostic test and is subject to false negative and false positive results. It is most reliable when a satisfactory sample, regularly obtained, is submitted with relevant clinical findings and history, and when the Pap result is evaluated along with historic and current clinical information. Equal Opportunity Director : SEE COMMENT [facility] Comment: CXP, CT(ASCP) CT screening location: [place] [address] Interpretation/R esult: Negative for intraepithelial lesion or malignancy. [facility] LMP: NONE GIVEN [facility] Prev. BX: NONE GIVEN [facility] Prev. PAP: NONE GIVEN [facility] SOURCE: None given [facility] Statement Of Adequacy: SEE COMMENT [facility] Comment: Satisfactory for evaluation. Endocervical/transformation zone component present. Age and/or menstrual status not provided 09/27/2020 2:14 PM EST us Tonya Ordaz [facility] PATHOLOGY ORDERABLES Final Result [facility] [address] * HPV mRNA E6/E7 (09/27/2020 2:14 PM EST) HPV nRNA E6/E7 Not Detected Not Detected [facility] Comment: Methodology: Spanish Language Lecturer-Mediated Amplification This assay detects E6/E7 viral messenger RNA (mRNA) from 14 high-risk HPV types (16,18,31,33,35,39,45,51,52,56,58,59,66,68). The analytical performance characteristics of this assay have been determined by [employer]. The modifications have not been cleared or approved by the FDA. This assay has been validated pursuant to the CLIA regulations and is used for clinical purposes. For additional information, please refer to http://education.Freepath/ZRT005c3 (This link if provided for information/ educational purposes only.) 09/27/2020 2:14 PM EST us Tonya Orlin [facility]LOOD ORDERABLES Melissa delmy Result [facility] [address] from Last 3 Months or Most Recently Relevant to Health Maintenance Insurance [employer] Care Teams Crushed Stone Grader Relationship Specialty Start Date End Date Gloria Osman CNP [address] [place] [address] PCP - General Family Medicine 06/08/25
--- OUTSIDE RECORDS SUMMARY | 2025-07-06 13:45 | XMS_ITS | Encounter Summary ---
Author Organization [employer] Address [address] [place] [address] [address] [place] [address] Care Team Providers Care Folder Operator Name Role Phone Itzel Schmid MD Primary Care Provider [phone] Gloria Osman CNP Primary Care Provider [phone] Reason for Visit * Reason Onset Date Comments Med Refill 09/16/2023 Encounter Details Date Type Department Care Team (Late st Contact Info) Description 09/16/2023 Telephone [facility] [address] [place] [address] Itzel Schmid MD [address] [place] [address] Med Refill Social History Tobacco Use Types [...] enough money to get more: Never True 11/ 03/2023 Transportation Answer Date Recorded In the [...] is not changed. Advised to come to [facility] 09/17 @ 320pm. Insurance is verified as [...] become worse * Telephone Encounter - Antonio Koch Ortiz - 09/16/2023 4:16 PM EST TC from pt requesting medication refill. Medications needing refill : Cyclobenzaprine 10 mg tablet To be sent to: [facility]acy [facility][id number] - [place] - [address] [place] [address] Medication Currently Inactive documented in this encounter Plan of Treatment Not on file documented as of this encounter Visit Diagnoses Not on filedocumented in this encounter Additional Health Concerns Assessment Noted Time PHQ-9 Depression Total Score: 0 06/19/20 23 11:34 AM EST documented as of this encounter Care Teams Folder Operator Relationship Specialty Start Date End Date Itzel Schmid MD [address] [place] [address] PCP - General Family Medicine 05/12/14 06/07/25 Gloria Osman CNP [address] [place] [address] PCP - General Family Medicine 06/08/25 documented as of this encounter
[2025-07-06 14:17] LABS: MANUAL DIFF FLAG NO
[2025-07-06 14:30] LABS: Hematocrit 37.9 % (37.0-47.0); Hemoglobin 11.9 g/dl (12.0-16.0); Imm Gran Abs Auto 0.02 X10*3/uL (0.00-0.03); Imm Gran Pct Auto 0.2 % (0.0-0.4); Lymphocytes Absolute Auto 2.9 X10*3/uL (1.2-4.9); Mean Corpuscular HGB Conc 31.4 g/dl (31.0-35.0); Mean Corpuscular Hemoglobin 26.0 pg (27.0-33.0); Mean Corpuscular Volume 82.9 fL (80.0-98.0); NRBC Abs Auto 0.000 X10*3/uL (0.0-0.012); NRBC Pct Auto 0.0 /100WBC (0.0-0.2); Platelet Count 453 X10*3/uL (160-400); Red Blood Count 4.57 X10*6/uL (4.20-5.50); White Blood Count 8.9 X10*3/uL (4.8-10.8)
[2025-07-06 14:48] LABS: Alanine Aminotransferase 12 U/L (0-31); Albumin Level 4.2 g/dL (3.5-5.0); Alkaline Phosphatase 82 U/L (39-117); Anion Gap 8 (12-20); Aspartate Amino Transferase 23 U/L (5-31); Blood Urea Nitrogen 11 mg/dL (9-16); Calcium 8.8 mg/dL (8.4-10.2); Carbon Dioxide 26 mmol/L (22-29); Chloride 108 mmol/L (96-108); Cholesterol 179 mg/dL (<200); Estimated Glomerular Filt Rate > 60; HDL Cholesterol 60 mg/dL (>40); Potassium 3.4 mmol/L (3.3-5.1); Sodium 139 mmol/L (135-145); Total Protein 7.4 g/dL (6.5-8.0); Triglycerides 164 mg/dL (<150)
== END 2025-07-06 10:43 | disposition home or self-care (01) ==
LOC: HO.CHCLDS 10:42
DX: Z76.89 Persons encountering health services in other specified circumstances (principal)
CPT/HCPCS: 36415; 80053; 80061; 83036; 85025